=== PATIENT | male | born 1995 | race Caucasian/White ===

== ENCOUNTER 2018-04-21 09:02 | Emergency (ER) | payer OTHER, BC ==
[2018-04-21 09:09] VITALS: PULSE 77; RESP 18
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
[2018-04-21 11:21] VITALS: BP 142/79; TEMP 98.7
== END 2018-04-21 11:19 | disposition home or self-care (01) ==
LOC: EC 09:02
DX: S00.01XA Abrasion of scalp, initial encounter (principal); V48.5XXA Car driver injured in noncollision transport accident in traffic accident, initial encounter; Y93.89 Activity, other specified; Y92.410 Unspecified street and highway as the place of occurrence of the external cause
CPT/HCPCS: 70450; 72125; 99284

== ENCOUNTER → 2020-08-18 | Outpatient (CLI) | payer OTHER | END | disposition home or self-care (01) ==